=== PATIENT | female | born 1970 | race Caucasian/White ===

== ENCOUNTER → 2016-07-22 08:45 | Outpatient (CLI) | payer BC ==
[2014-06-05 08:51] VITALS: BMI 25.3
[~2016-07-22 08:45] MED LIST: ATIVAN0.5 MG PO; ESTRACE2 MG PO; SYNTHROID75 MCG PO
== END | disposition home or self-care (01) ==
LOC: D.US 08:45
DX: R79.89 Other specified abnormal findings of blood chemistry (principal)

== ENCOUNTER → 2017-03-05 18:53 | Outpatient (CLI) | payer BC ==
[2014-06-05 08:51] VITALS: BMI 25.3
== END | disposition home or self-care (01) ==
LOC: D.MAMMO 14:30
DX: Z12.31 Encounter for screening mammogram for malignant neoplasm of breast (principal)

== ENCOUNTER → 2017-05-25 14:42 | Outpatient (CLI) | payer BC ==
[2014-06-05 08:51] VITALS: BMI 25.3
== END | disposition home or self-care (01) ==
LOC: D.CT 14:42
DX: R10.31 Right lower quadrant pain (principal)

== ENCOUNTER → 2017-08-16 13:29 | Outpatient (CLI) | payer BC ==
[2014-06-05 08:51] VITALS: BMI 25.3
== END | disposition home or self-care (01) ==
LOC: D.ECHO 08-13 13:30
DX: R06.02 Shortness of breath (principal); I25.10 Atherosclerotic heart disease of native coronary artery without angina pectoris

== ENCOUNTER → 2018-03-10 09:15 | Outpatient (CLI) | payer BC ==
[2014-06-05 08:51] VITALS: BMI 25.3
== END | disposition home or self-care (01) ==
LOC: D.ECHO 09:15
DX: I25.10 Atherosclerotic heart disease of native coronary artery without angina pectoris (principal)

== ENCOUNTER → 2018-04-22 09:14 | Outpatient (CLI) | payer BC ==
[2014-06-05 08:51] VITALS: BMI 25.3
[2018-04-22 10:32] LABS: BASOPHILS 0.6 % (0-2); EOSINOPHILS 2.4 % (0-7); HEMATOCRIT 42.2 % (36.0-48.0); HEMOGLOBIN 14.4 g/dL (12-16); IMMATURE GRANULOCYTES 0.2 % (0-5); LYMPHOCYTES 36.5 % (15-50); MCHC 34.1 g/dL (31.0-37.0); MCV 96.8 fL (80.0-100.0); MEAN PLATELET VOLUME 9.9 fL (7.4-10.4); MONOCYTES 8.6 % (2-11); NEUTROPHILS 51.7 % (40-80); PLATELET COUNT 232 10x3/uL (130-400); RBC 4.36 10x6/uL (4.00-5.40); RDW 13.5 % (11.5-14.5); WBC 5.3 10x3/uL (4.8-10.8)
[2018-04-22 10:43] LABS: APTT 26.3 SECONDS (22.8-39.4); INR 0.99 (0.85-1.17); PROTIME 12.6 SECONDS (11.6-15.0)
[2018-04-22 10:52] LABS: % SATURATION 32 % (15-55); IRON 115 ug/dl (35-150); TOTAL IRON BIND CAPACITY 354 ug/dl (260-445); UNSAT IRON BIND CAPACITY 239 ug/dl (150-375)
[2018-04-22 11:24] LABS: ALBUMIN 4.1 g/dL (3.4-5.0); ALKALINE PHOSPHATASE 106 U/L (46-116); ALT (SGPT) 404 U/L (10-68); BILIRUBIN - DIRECT 0.17 mg/dL (0.00-0.30); BILIRUBIN - INDIRECT 0.22 mg/dL (0.00-1.00); BILIRUBIN - TOTAL 0.39 mg/dL (0.2-1.3); CALC OSMOLALITY 278 mosm/kg (275-300); CALCIUM 9.4 mg/dL (8.5-10.1); CARBON DIOXIDE 29.2 mmol/L (21.0-32.0); CHLORIDE - SERUM 101 mmol/L (98-107); CHOL - HDL RATIO 1.9 ratio (2.3-4.1); CHOLESTEROL, TOTAL 164 mg/dL (0-200); CREATININE - SERUM 0.8 mg/dL (0.6-1.3); GAMMA GT 248 U/L (5-85); GLUCOSE 93 mg/dL (74-106); HDL CHOLESTEROL 85 mg/dL (32-96); LDL CHOLESTEROL 65 mg/dL (0-100); LDL-HDL RATIO 0.8 ratio (1.5-3.5); POTASSIUM - SERUM 3.8 mmol/L (3.5-5.1); PROTEIN - SERUM 8.1 g/dL (6.4-8.2); SODIUM 140 mmol/L (136-145); TRIGLYCERIDE 73 mg/dL (30-200); UREA NITROGEN 13 mg/dL (7-18); eGFR NON AFRICAN AMERICAN 81 mL/min (90-120)
[2018-04-22 11:31] LABS: FERRITIN 3040 ng/mL (3-244)
[2018-04-23 07:18] LABS: HEPATITIS C ANTIBODY <0.1 S/CO RAT (0.0-0.9)
[2018-04-23 10:15] LABS: HAPTOGLOBIN 135 mg/dL (34-200); TRANSFERRIN 282 mg/dL (200-370)
[2018-04-23 11:13] LABS: ALPHA FETOPROTEIN -(TUMOR MRK) 8.3 ng/mL (0.0-8.3); FOLATE (FOLIC ACID) - SERUM 10.5 ng/mL (>3.0)
== END | disposition home or self-care (01) ==
LOC: D.US 09:14
DX: K76.0 Fatty (change of) liver, not elsewhere classified (principal); R79.89 Other specified abnormal findings of blood chemistry; K21.9 Gastro-esophageal reflux disease without esophagitis

== ENCOUNTER 2018-04-29 20:20 | Emergency (ER) | payer BC | END 2018-04-30 00:27 | disposition home or self-care (01) | LOC: D.ER 20:20 | DX: S00.03XA Contusion of scalp, initial encounter (principal); S80.02XA Contusion of left knee, initial encounter; V43.52XA Car driver injured in collision with other type car in traffic accident, initial encounter; Y93.89 Activity, other specified; Y92.410 Unspecified street and highway as the place of occurrence of the external cause; S16.1XXA Strain of muscle, fascia and tendon at neck level, initial encounter; M79.18 Myalgia, other site; Z95.1 Presence of aortocoronary bypass graft ==

== ENCOUNTER → 2018-05-25 09:54 | Outpatient (CLI) | payer BC ==
[2018-04-29 20:30] VITALS: BMI 28.7
[~2018-05-25 09:54] MED LIST changes: +ASPIRIN325 MG PO; +BUPROPION HCL100 MG PO; +LOPRESSOR25 MG; +REPATHA SY140 MG/1 M; +ROBAXIN500 MG PO; +ULTRAM50 MG PO
== END | disposition home or self-care (01) ==
LOC: D.MRI 09:54
DX: M54.40 Lumbago with sciatica, unspecified side (principal)

== ENCOUNTER → 2018-05-26 15:03 | Outpatient (CLI) | payer BC ==
[2018-04-29 20:30] VITALS: BMI 28.7
== END | disposition home or self-care (01) ==
LOC: D.LAB 15:03
DX: R74.8 Abnormal levels of other serum enzymes (principal); R79.89 Other specified abnormal findings of blood chemistry

== ENCOUNTER → 2019-03-14 07:52 | Outpatient (CLI) | payer BC ==
[2018-04-29 20:30] VITALS: BMI 28.7
== END | disposition home or self-care (01) ==
LOC: D.MRI 07:52
PROVIDERS: ATTEND Family Medicine
DX: M51.16 Intervertebral disc disorders with radiculopathy, lumbar region (principal)

== ENCOUNTER → 2019-12-11 14:54 | Outpatient (CLI) | payer BC ==
[2018-04-29 20:30] VITALS: BMI 28.7
[2019-12-11 15:53] LABS: BILIRUBIN - DIRECT 0.16 mg/dL (0.00-0.30); BILIRUBIN - INDIRECT 0.22 mg/dL (0.00-1.00); BILIRUBIN - TOTAL 0.38 mg/dL (0.2-1.3); PROTEIN - SERUM 7.3 g/dL (6.4-8.2)
[2019-12-12 11:11] LABS: RUBELLA IGG <0.90 index (Immune >0.99)
== END | disposition home or self-care (01) ==
LOC: D.LAB 14:54
PROVIDERS: ATTEND Internal Medicine Gastroenterology
DX: K76.0 Fatty (change of) liver, not elsewhere classified (principal)

== ENCOUNTER 2019-12-31 00:05 | Emergency (ER) | payer OTHER ==
[~2019-12-31] VITALS: Ht 160 cm; Wt 75.0 kg
[2019-12-31 00:10] VITALS: Ht 160 cm; Wt 75.0 kg
[2019-12-31] MEDS ORDERED: FEXOFENADINE H180 MG PO (00:12)
[2019-12-31] MEDS ORDERED: CYCLOBENZAPRINE10 MG PO (00:57)
[2019-12-31 01:34] VITALS: BP 121/79
== END 2019-12-31 01:34 | disposition home or self-care (01) ==
LOC: D.ER 00:05
DX: S16.1XXA Strain of muscle, fascia and tendon at neck level, initial encounter (principal); S70.01XA Contusion of right hip, initial encounter; S43.401A Unspecified sprain of right shoulder joint, initial encounter; V89.2XXA Person injured in unspecified motor-vehicle accident, traffic, initial encounter; Y93.9 Activity, unspecified; Y92.9 Unspecified place or not applicable; Z95.1 Presence of aortocoronary bypass graft

== ENCOUNTER → 2020-01-26 12:52 | Outpatient (CLI) | payer BC ==
[2019-12-31 00:10] VITALS: BMI 29.2
[~2020-01-26 12:52] MED LIST changes: +CYCLOBENZAPRINE10 MG PO; +FEXOFENADINE H180 MG PO
== END | disposition home or self-care (01) ==
LOC: D.MRI 12:52
PROVIDERS: ATTEND Neurological Surgery
DX: M54.16 Radiculopathy, lumbar region (principal)